=== PATIENT | male | born 1965 | race Caucasian/White ===

== ENCOUNTER 2018-10-01 06:50 | Emergency (ER) | payer MEDICAID ==
[~2018-10-01] VITALS: Ht 175.3 cm; Wt 59.1 kg
[2018-10-01 06:52] VITALS: Ht 175.3 cm; Wt 59.1 kg
[2018-10-01 07:19] LABS: BASOPHILS 0.9 % (0-2); EOSINOPHILS 2.4 % (0-7); HEMATOCRIT 42.8 % (42.0-54.0); HEMOGLOBIN 13.5 g/dL (13.5-17.5); IMMATURE GRANULOCYTES 0.2 % (0-5); LYMPHOCYTES 38.1 % (15-50); MCH 28.7 pg (26.0-34.0); MCHC 31.5 g/dL (31.0-37.0); MCV 90.9 fL (80.0-100.0); MEAN PLATELET VOLUME 9.6 fL (7.4-10.4); MONOCYTES 11.5 % (2-11); NEUTROPHILS 46.9 % (40-80); PLATELET COUNT 156 10x3/uL (130-400); RBC 4.71 10x6/uL (4.20-6.10); RDW 13.8 % (11.5-14.5); WBC 4.6 10x3/uL (4.8-10.8)
[2018-10-01 07:32] LABS: ALBUMIN 3.4 g/dL (3.4-5.0); ALKALINE PHOSPHATASE 58 U/L (46-116); ALT (SGPT) 38 U/L (10-68); BILIRUBIN - TOTAL 0.42 mg/dL (0.2-1.3); CALC OSMOLALITY 284 mosm/kg (275-300); CALCIUM 8.8 mg/dL (8.5-10.1); CARBON DIOXIDE 35.2 mmol/L (21.0-32.0); CHLORIDE - SERUM 106 mmol/L (98-107); CREATININE - SERUM 0.8 mg/dL (0.6-1.3); GLUCOSE 125 mg/dL (74-106); POTASSIUM - SERUM 4.2 mmol/L (3.5-5.1); PROTEIN - SERUM 6.6 g/dL (6.4-8.2); SODIUM 142 mmol/L (136-145); UREA NITROGEN 15 mg/dL (7-18); eGFR NON AFRICAN AMERICAN > 90 mL/min (90-120)
[2018-10-01 07:46] LABS: INR 1.1 (0.85-1.17); PROTIME 13.7 SECONDS (11.6-15.0)
[2018-10-01 07:47] LABS: APTT 31.9 SECONDS (22.8-39.4)
[2018-10-01 07:51] LABS: CREATINE KINASE 50 UL (21-232); PRO BNP 52 pg/mL (0-125); TROPONIN-I < 0.017 ng/mL (0.000-0.060)
[2018-10-01] MEDS ORDERED: ADVAIR 250/501 DISK INH (08:34)
[2018-10-01] MEDS ORDERED: ALBUTEROL SULF8.5 GM INH (08:34)
[2018-10-01 10:05] VITALS: BP 119/91
== END 2018-10-01 09:15 | disposition home or self-care (01) ==
LOC: D.ER 06:50
PROVIDERS: Family Medicine
DX: J44.9 Chronic obstructive pulmonary disease, unspecified (principal)

== ENCOUNTER 2018-12-25 03:18 | Emergency (ER) | payer MEDICAID ==
[~2018-12-25] VITALS: Ht 175.3 cm; Wt 68.2 kg
[~2018-12-25 03:18] MED LIST: ADVAIR 250/501 DISK INH; ALBUTEROL SULF8.5 GM INH
[2018-12-25 03:19] VITALS: BP 105/73; Ht 175.3 cm; Wt 68.2 kg
--- NOTE | 2018-12-25 03:45 | NUR ---
DR. UMANZOR NOTIFIED AND REVIEWED PT'S BEHAVIOR AND ASSESSMENT RESULTS. PT IS A LOW RISK PER DR. UMANZOR. DR. UMANZOR STATED TO GIVE RESOURCES TO PT AT TIME OF DISCHARGE. NO FURTHER ORDERS AT THIS TIME. RESOURCES REVIEWED WITH PT AND HE VERBALIZED UNDERSTANDING.
== END 2018-12-25 04:06 | disposition home or self-care (01) ==
LOC: D.ER 03:18
DX: Z76.5 Malingerer [conscious simulation] (principal)